=== PATIENT | female | born 1955 | race Caucasian/White ===

== ENCOUNTER 2019-03-03 06:24 | Day surgery (SDC) | payer MEDICARE, OTHER ==
--- NOTE | 2019-03-02 13:06 | PREOPHP ---
DATE OF ADMISSION: 03/03/2019 HISTORY OF PRESENT ILLNESS: This 63-year-old patient is admitted for elective cataract surgery of th e right eye. The patient has had decreased vision in both eyes for the past year's time. The patien t also has a history of "droopy" upper eyelids. The patient denies any prior history of eye disease or injury. PAST MEDICAL HISTORY: The patient's systemic history is positive for systemic hypertension and attention deficit disorder. CURRENT MEDICATIONS: Include: 1. Amlodipine. 2. Adderall. PAST SURGICAL HISTORY: The patient had a recent history of upper lid blepharoplasty in both eyes for the pseudoptosis. ALLERGIES: THERE ARE NO KNOWN ALLERGIES. PHYSICAL EXAMINATION: The visual acuity with best correction is 20/200 in the right eye and 20/70 in the left eye. Slit lamp examination reveals no residual ptosis of both upper eyelids. Slit lamp ex amination reveals moderate nuclear sclerosis and dense posterior subcapsular cataract in the right ey e with an early posterior subcapsular cataract in the left eye. Applanation tonometry is 15 mmHg. E xamination of the retina is within normal limits. DIAGNOSIS: Nuclear sclerotic and posterior subcapsular cataract, right eye. PLAN: Cataract extraction with lens implant, right eye. The risks and alternatives to the surgery h ave been discussed with the patient as well as the hope for improvement of visual acuity leading to g reater ability to perform activities of daily living. The patient understands this and agrees to pro ceed with surgery. Dictated By: SIMONE BASSETT/ARNIE Conf#: [id number] DID#: [id number]
[~2019-03-03] VITALS: Ht 168.9 cm; Wt 86.9 kg
[2019-03-03] VITALS (12 sets, daily range): BP systolic 129–151; BP diastolic 76–99; PULSE 63–74; RESP 16–33; Ht 168.9 cm; Wt 86.9 kg
[2019-03-03] MEDS ORDERED: TROPICAMIDE 1% 15 ML OPH OPER SCH (08:00)
[2019-03-03] MEDS ORDERED: CYCLOPENTOLATE/PHENYLEPH 2 ML OPH OPER SCH (08:00)
[2019-03-03] MEDS ORDERED: DICLOFENAC 0.1% 2.5 ML OPH OPER SCH (08:00)
[2019-03-03] MEDS ORDERED: MOXIFLOXACIN 0.5% 3 ML OPH OPER SCH (08:00)
[2019-03-03] MEDS ORDERED: SOD CHLORIDE 0.9% 1,000 ML IV SCH (08:00)
[2019-03-03] MEDS ORDERED: LIDOCAINE 4% (MPF) 5 ML INJ ONE (08:21)
[2019-03-03] MEDS ORDERED: CARBACHOL 0.01% 1.5 ML OPH INJ ONE (08:21)
[2019-03-03] MEDS ORDERED: DEXAMETHASONE 4 MG/ML 1 ML INJ ONE (08:21)
[2019-03-03] MEDS ORDERED: CEFAZOLIN 1 GM INJ ONE (08:21)
[2019-03-03] MEDS ORDERED: NA HYALURONATE/CHONDROITIN 0.5 ML SYG ONE (08:22)
--- NOTE | 2019-03-03 08:31 | PREAC ---
Date/Time of Note Date/Time of Note DATE: 03/03/19 TIME: 08:30 Anesthesia Eval and Record Evaluation Time Pre-Procedure Interview DATE: 03/03/19 TIME: 08:30 Age 63 Sex female NPO: 8 hrs Preoperative diagnosis Cataract R. Eye Planned procedure C/E, IOL Past Medical History Past Medical History: Includes Cardio: HTN Endo: Diabetes Renal: Other (Renal Cancer) Psych: Anxiety Surgery & Anesthesia Issues No known issue Meds Anticoagulation: No Beta Lena within 24 hr: No Reason Beta Lena not given: Pt. not on B-Lena No Active Prescriptions or Reported Meds Current Medications Diclofenac Sodium (Voltaren 0.1%) 1 drop Q5 MIN X 3 OPER Last administered on 03/03/19at 07:04; Admin Dose 1 DROP; Start 03/03/19 at 08:00; Stop 03/03/19 at 20:00 Tropicamide (Mydriacyl 1%) 1 drop Q5 MIN X3 OPER Last administered on 03/03/19at 07:04; Admin Dose 1 DROP; Start 03/03/19 at 08:00; Stop 03/03/19 at 20:00 Moxifloxacin HCl (Vigamox) 1 drop Q5 MIN X 3 OPER Last administered on at 07:04; Admin Dose 1 DROP; Start 03/03/19 at 08:00; Stop 03/03/19 at 20:00 Cyclopentolate/ Phenylephrine (Cyclomydril Oph 2 ml) 1 drop Q5 MIN X 3 OPER Last administered on 03/03/19at 07:04; Admin Dose 1 DROP; Start 03/03/19 at 08:00; Stop 03/03/19 at 20:00 Sodium Chloride 1,000 ml @ 25 mls/hr Q24H IV ; Start 03/03/19 at 08:00; Stop 03/03/19 at 20:00 Meds reviewed: Yes Allergies Coded Allergies: No Known Allergy (Unverified , 03/03/19) Allergies Reviewed: Yes Labs/Studies Labs Reviewed: Reviewed by anesthesiologist test: N/A Pre-procedure Exam Last vitals Vital Signs Date Temp Pulse Resp B/P (MAP) Pulse Ox O2 O2 Flow FiO2 Time Delivery Rate 03/03/19 97.0 63 16 129/99 97 Room Air 07:40 (109) Airway: Adequate mouth opening Mallampati: Mallampati II Teeth: Normal Lung: Normal Heart: Normal ASA Physical Status ASA physical status: 3 Emergency: None Planned Anesthetic General/MAC: MAC Pre-operative Attestations Prior to commencing anesthesia and surgery, the patient was re-evaluated, there was verification of: *The patient's identity *The results of appropriate recent lab work and preoperative vital signs *The above evaluation not changing prior to induction *Anesthetic plan, risk benefits, alternative and complications discussed with patient/family; questions answered; patient/family understands, accepts and wishes to proceed. ANDREY LEDEZMA MD March 03, 2019 08:31
[2019-03-03] MEDS ORDERED: PROPOFOL 20 ML ONE (08:34)
--- NOTE | 2019-03-03 09:14 | SIPON ---
Date/Time of Note Date/Time of Note DATE: 03/03/19 TIME: 09:13 Operative Report Preoperative Diagnosis nuclear sclerotic & posterior subcapsular cataract od Postoperative Diagnosis same Operation/Procedure Performed cataract extraction with lens implant od Surgeon simone elmore assistant counsel none Anesthesia: MAC Estimated blood loss: none Transfusion Required none Specimen none Grafts/Implants posterior chamber lens implant Complications none SIMONE ELMORE MD March 03, 2019 09:14
--- NOTE | 2019-03-03 09:17 | PAC ---
Date/Time of Note Date/Time of Note DATE: 03/03/19 TIME: 09:17 Post-Anesthesia Notes Post-Anesthesia Note Last documented vital signs Vital Signs Date Temp Pulse Resp B/P (MAP) Pulse Ox O2 O2 Flow FiO2 Time Delivery Rate 03/03/19 97.0 63 16 129/99 97 Room Air 07:40 (109) Activity: WNL Respiratory function: WNL Cardiovascular function: WNL Mental status: Baseline Pain reasonably controlled: Yes Hydration appropriate: Yes Nausea/Vomiting absent: Yes ANDREY LEDEZMA MD March 03, 2019 09:17
[2019-03-03] MEDS ORDERED: ACETAMINOPHEN 325 MG TAB PO ONE (09:30)
--- NOTE | 2019-03-03 09:43 | OPR ---
DATE OF OPERATION: 03/03/2019 PREOPERATIVE DIAGNOSIE: Nuclear sclerotic and posterior subcapsular cataract, right eye. POSTOPERATIVE DIAGNOSES: Nuclear sclerotic and posterior subcapsular cataract, right eye. OPERATION PERFORMED: Cataract extraction with lens implant, right eye. SURGEON: Simone Elmore M.D. ANESTHESIA: Joseph Ramos M.D. ANESTHESIA: Local standby. PROCEDURE: The patient was brought to the operating room and placed on the table with an IV in place and the patient attached to an court recording monitor. Oxygen was given via face mask. After some intravenous sedation was administered, local anesthesia was given using Xylocaine 2% with epinephrine, mixed with Marcaine 0.5%. This was given in a lid block and retrobulbar injection. The patient was then prepped and draped in the usual sterile manner. A wire lid speculum was inserted between the lids of the right eye. A Superblade was used to enter t he anterior chamber at the corneoscleral limbus at the 10:30 o'clock position. A separate incision w as made using a 3.0-mm keratome which entered the corneoscleral junction at the 12 o'clock position. Through this 3-mm opening, an irrigating cystotome was introduced into the anterior chamber. The ch radha was filled with Viscoat and an anterior capsulotomy was performed. Balanced salt solution was then used for hydrodissection of the lens. A phacoemulsification handpiece was then brought into the field and introduced into the anterior chamber. The lens nucleus was emulsified using a deep groove and cracking the nucleus into quadrants. Following this, each quadrant was aspirated and emulsified at the pupillary margin. After this was completed, the irrigation/aspiration handpiece was brought to the field, introduced in to the posterior chamber, and the lens cortical material was removed. When this was completed, addit ional Viscoat was injected into the anterior and posterior chambers. The 3-mm opening had its internal lips enlarged, and then the posterior chamber intraocular lens jean marie uring 18.0 diopters ([employer] Model LI61AO) was then injected into the posterior c hamber using the lens injector system. After the leading haptic was introduced into the capsular bag and the lens optic was present in the center of the eye, the injector was removed and the trailing h aptic was grasped with non-toothed forceps and introduced into the capsular fold superiorly. A [place] ey hook was then used to rotate the intraocular lens so that the lips were oriented in the horizontal meridian. One 10-0 nylon suture was placed across the wound. Prior to tying, the irrigation/aspiration handpiece was reintroduced into the anterior chamber to rem ove the Viscoat. Miochol was instilled to constrict the pupil, and then the 10-0 nylon suture was ti ed. The ends were cut short and then the knot was buried. Then, 0.5 mL of dexamethasone and 0.5 mL of Ancef were injected into the sub-Tenon space in the infer ior fornix. Ciloxan drops were then placed on the surface of the eye. The speculum was removed and a patch was applied. The patient then left the operating room in satisfactory condition. Dictated By: SIMONE BASSETT/ARNIE Conf#: [id number] DID#: [id number] CC: SIMONE ELMORE MD;*EndCC*
== END 2019-03-03 10:40 | disposition home or self-care (01) ==
LOC: SDS 06:24
PROVIDERS: ATTEND Ophthalmology
DX: H25.11 Age-related nuclear cataract, right eye (principal); E11.9 Type 2 diabetes mellitus without complications; I10 Essential (primary) hypertension
CPT/HCPCS: 66984; J0690; J1100; V2632

== ENCOUNTER 2019-03-24 07:49 | Day surgery (SDC) | payer MEDICARE, OTHER ==
--- NOTE | 2019-03-23 22:26 | PREOPHP ---
DATE OF ADMISSION: 03/24/2019 HISTORY OF PRESENT ILLNESS: This 63-year-old patient is admitted for elective cataract surgery of th e left eye. The patient has had progressive deterioration of vision in both eyes and has undergone c ataract surgery with lens implant in the right eye 3 weeks ago with good visual result. 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 SYSTEMIC HISTORY: Positive for hypertension and attention deficit disorder. CURRENT MEDICATIONS: Include: 1. Amlodipine. 2. Adderall. ALLERGIES: THERE ARE NO KNOWN ALLERGIES. PHYSICAL EXAMINATION: The visual acuity with best correction is 20/40 in the right eye and 20/70 in the left eye. Slit-lamp examination reveals a posterior chamber intraocular lens in the right eye an d a nuclear sclerotic and posterior subcapsular cataract in the left eye. Applanation tonometry is 1 6 mmHg. Examination of the retina is within normal limits. DIAGNOSIS: Nuclear sclerotic and posterior subcapsular cataract, left eye. PLAN: Cataract extraction with lens implant, left eye. The risks and the alternatives to the surger y have been discussed with the patient, including the hopes for improved visual acuity leading to gre ater ability to perform activities of daily living. The patient agrees to proceed with surgery. Dictated By: SIMONE BASSETT/ARNIE Conf#: [id number] DID#: [id number]
[2019-03-24] VITALS (9 sets, daily range): BP systolic 104–132; BP diastolic 65–76; PULSE 58–69; RESP 10–22; Ht 168.9 cm; Wt 86.4 kg
[~2019-03-24] VITALS: Ht 168.9 cm; Wt 86.4 kg
[2019-03-24] MEDS ORDERED: TROPICAMIDE 1% 15 ML OPH OPER SCH (08:00)
[2019-03-24] MEDS ORDERED: MOXIFLOXACIN 0.5% 3 ML OPH OPER SCH (08:00)
[2019-03-24] MEDS ORDERED: DICLOFENAC 0.1% 2.5 ML OPH OPER SCH (08:00)
[2019-03-24] MEDS ORDERED: SOD CHLORIDE 0.9% 1,000 ML IV SCH (08:00)
[2019-03-24] MEDS ORDERED: CYCLOPENTOLATE/PHENYLEPH 2 ML OPH OPER SCH (08:00)
[2019-03-24] MEDS ORDERED: ADDE30 PO (08:22)
[2019-03-24] MEDS ORDERED: AMLO-147 PO (08:22)
--- NOTE | 2019-03-24 09:36 | PREAC ---
Date/Time of Note Date/Time of Note DATE: 03/24/19 TIME: 09:34 Anesthesia Eval and Record Evaluation Time Pre-Procedure Interview DATE: 03/24/19 TIME: 09:34 Age 63 Sex female NPO: 8 hrs Preoperative diagnosis Left eye cataract Planned procedure Cataract extraction with IOL implant Past Medical History Past Medical History: Includes Cardio: HTN Renal: Other (N/O renal CA S/P nephrectomy) GI: Obesity Psych: Other (ADHD) Recreational drugs: Marijuana Surgery & Anesthesia Issues No known issue Meds Anticoagulation: No Beta Lena within 24 hr: No Reason Beta Lena not given: Pt. not on B-Lena Reported Medications Amlodipine Besylate* (Amlodipine Besylate*) 10 Mg Tablet, 10 MG PO DAILY, #30 TAB 03/24/19 Amphet Vza-Ijphgd-N-Amphet (Adderall) 30 Mg Tablet, 30 MG PO DAILY, TAB 03/24/19 Current Medications Diclofenac Sodium (Voltaren 0.1%) 1 drop Q5 MIN X 3 OPER Last administered on 03/24/19at 08:31; Admin Dose 1 DROP; Start 03/24/19 at 08:00 Tropicamide (Mydriacyl 1%) 1 drop Q5 MIN X3 OPER Last administered on 03/24/19at 08:32; Admin Dose 1 DROP; Start 03/24/19 at 08:00 Moxifloxacin HCl (Vigamox) 1 drop Q5 MIN X 3 OPER Last administered on 03/24/19 at 08:32; Admin Dose 1 DROP; Start 03/24/19 at 08:00 Cyclopentolate/ Phenylephrine (Cyclomydril Oph 2 ml) 1 drop Q5 MIN X 3 OPER Last administered on 03/24/19at 08:31; Admin Dose 1 DROP; Start 03/24/19 at 08:00 Sodium Chloride 1,000 ml @ 25 mls/hr Q24H IV Last administered on 03/24/19at 08:32; Admin Dose 25 MLS/HR; Start 03/24/19 at 08:00 Meds reviewed: Yes Allergies Coded Allergies: No Known Allergy (Unverified , 03/24/19) Allergies Reviewed: Yes Labs/Studies Labs Reviewed: Reviewed by anesthesiologist test: N/A Pre-procedure Exam Last vitals Vital Signs Date Temp Pulse Resp B/P (MAP) Pulse Ox O2 O2 Flow FiO2 Time Delivery Rate 03/24/19 97.6 60 16 120/72 96 Room Air 08:38 (88) Airway: Adequate mouth opening Mallampati: Mallampati II Teeth: Abnormal (Upper denture) Lung: Normal Heart: Normal ASA Physical Status ASA physical status: 3 Emergency: None Planned Anesthetic General/MAC: MAC Planned Pain Management Parenteral pain med Pre-operative Attestations Prior to commencing anesthesia and surgery, the patient was re-evaluated, there was verification of: *The patient's identity *The results of appropriate recent lab work and preoperative vital signs *The above evaluation not changing prior to induction *Anesthetic plan, risk benefits, alternative and complications discussed with patient/family; questions answered; patient/family understands, accepts and wishes to proceed. STUART WILSON MD Mar 24, 2019 09:36
[2019-03-24] MEDS ORDERED: PROPOFOL 20 ML ONE (10:18)
[2019-03-24] MEDS ORDERED: LABETALOL HCL 20MG INJ ONE (10:22)
[2019-03-24] MEDS ORDERED: DEXAMETHASONE 4 MG/ML 1 ML INJ ONE (10:36)
[2019-03-24] MEDS ORDERED: GENTAMICIN 80 MG INJ ONE (10:36)
[2019-03-24] MEDS ORDERED: CARBACHOL 0.01% 1.5 ML OPH INJ ONE (10:36)
[2019-03-24] MEDS ORDERED: LIDOCAINE 4% (MPF) 5 ML INJ ONE ×2 (10:36→11:06)
[2019-03-24] MEDS ORDERED: CEFAZOLIN 1 GM INJ ONE (10:36)
[2019-03-24] MEDS ORDERED: TETRACAINE 0.5% 4 ML OPH ONE (10:36)
[2019-03-24] MEDS ORDERED: EPINEPHrine 1 MG INJ ONE (10:37)
[2019-03-24] MEDS ORDERED: NA HYALURONATE/CHONDROITIN 0.5 ML SYG ONE (10:37)
[2019-03-24] MEDS ORDERED: MEPERIDINE 25 MG INJ IV PRN (11:00)
[2019-03-24] MEDS ORDERED: EPHEDrine 25 MG/5 ML SYG IV PRN (11:00)
[2019-03-24] MEDS ORDERED: DIPHENHYDRAMINE 50 MG INJ IV PRN (11:00)
[2019-03-24] MEDS ORDERED: METOCLOPRAMIDE 10 MG INJ IV PRN (11:00)
[2019-03-24] MEDS ORDERED: hydrALAzine 20 MG INJ IV PRN (11:00)
[2019-03-24] MEDS ORDERED: ONDANSETRON 4 MG INJ IV PRN (11:00)
[2019-03-24] MEDS ORDERED: FENTAnyl 50 MCG/ML VIAL IV PRN ×2 (11:00)
[2019-03-24] MEDS ORDERED: MIDAZOLAM 1 MG/ML 2 ML INJ IV PRN (11:00)
[2019-03-24] MEDS ORDERED: LABETALOL HCL 20MG INJ IV PRN (11:00)
[2019-03-24] MEDS ORDERED: OXYCODONE/ACETAMINOPHEN (5/325) TAB PO PRN ×2 (11:00)
[2019-03-24] MEDS ORDERED: MIDAZOLAM 1 MG/ML 2 ML INJ ONE (11:09)
[2019-03-24] MEDS ORDERED: FENTAnyl 50 MCG/ML VIAL ONE (11:09)
--- NOTE | 2019-03-24 11:47 | SIPON ---
Date/Time of Note Date/Time of Note DATE: 03/24/19 TIME: 11:45 Operative Report Preoperative Diagnosis nuclear sclerotic cataract os Postoperative Diagnosis same Operation/Procedure Performed cataract extraction with lens implant os Surgeon simone elmore lead assistant manager none Anesthesia: MAC Estimated blood loss: none Transfusion Required none Specimen none Grafts/Implants posterior chamber lens implant Complications none SIMONE ELMORE MD Mar 24, 2019 11:47
[2019-03-24] MEDS: FENTAnyl 50 MCG/ML VIAL IV PRN ×2 (11:49→12:02)
--- NOTE | 2019-03-24 12:23 | PAC ---
Date/Time of Note Date/Time of Note DATE: 03/24/19 TIME: 12:22 Post-Anesthesia Notes Post-Anesthesia Note Last documented vital signs Vital Signs Date Temp Pulse Resp B/P (MAP) Pulse Ox O2 O2 Flow FiO2 Time Delivery Rate 03/24/19 64 17 122/70 97 Room Air 12:14 (87) 03/24/19 98.0 11:43 Activity: WNL Respiratory function: WNL Cardiovascular function: WNL Mental status: Baseline Pain reasonably controlled: Yes Hydration appropriate: Yes Nausea/Vomiting absent: Yes Comments BT: 98.3 STUART WILSON MD Mar 24, 2019 12:23
--- NOTE | 2019-03-24 14:51 | OPR ---
DATE OF OPERATION: 03/24/2019 PREOPERATIVE DIAGNOSIS: Nuclear sclerotic and posterior subcapsular cataract, left eye. POSTOPERATIVE DIAGNOSIS: Nuclear sclerotic and posterior subcapsular cataract, left eye. OPERATION PERFORMED: Cataract extraction with lens implant, left eye. SURGEON: Simone Abad MD ANESTHESIOLOGIST: Dr. Mohan SURGEON: Simone Abad MD OPERATION: Phacoemulsification with posterior chamber intraocular lens implant, left eye. PROCEDURE: The patient was brought to the operating room and placed on the table with an IV in place and the patient attached to an compensation supervisor. Oxygen was given via face mask. After some intravenous sedation was administered, local anesthesia was given using Xylocaine 2% with epinephrine, mixed with Marcaine 0.5%. This was given in a lid block and retrobulbar injection. The patient was then prepped and draped in the usual sterile manner. A wire lid speculum was inserted between the lids of the left eye. A Superblade was used to enter the anterior chamber at the corneoscleral limbus at the 10:30 o'clock position. A separate incision was made using a 3.0-mm keratome which entered the corneoscleral junction at the 12 o'clock position. Through this 3-mm opening, an irrigating cystotome was introduced into the anterior chamber. The chamber was filled with Viscoat and an anterior capsulotomy was performed. Balanced salt solution was then used for hydrodissection of the lens. The lens nucleus was emulsified using a deep groove and cracking the nucleus into quadrants. Following this, each quadrant was aspirated and emulsified at the pupillary margin. Attempt was made to remove epinuclear layer of the cataract using the phacoemulsification handpiece. While doing this, a small central opening in the posterior capsule occurred. After this was completed, the irrigation/aspiration handpiece was brought to the field, introduced into the posterior chamber, and the lens cortical material was removed. It was noted that formed vitreous in the posterior chamber and at the lips of the wound. Attempt to remove the balance of the lens cortical material was stopped and an anterior vitrectomy was performed using mechanical vitrectomy instrumentation, until there was no formed vitreous at the ellipse of the wound or in the anterior chamber. Following that, the remainder of the lens cortical material was removed and then Provisc was injected into the anterior chamber and it was noted that there was sufficient posterior capsular support to place a posterior chamber lens implant. Therefore, a 17.0 diopter posterior chamber intraocular lens ([employer] Model LI61AO) was inserted into the posterior chamber anterior to the capsular supports. The lens remained well centered and did not move despite exterior pressure on the eye. After the leading haptic was introduced into the capsular bag and the lens optic was present in the center of the eye, the injector was removed and the trailing haptic was grasped with non-toothed forceps and introduced into the capsular fold superiorly. A [place] hook was then used to rotate the intraocular lens so that the lips were oriented in the horizontal meridian. One 10-0 nylon suture was placed across the wound. Prior to tying, the irrigation/aspiration handpiece was reintroduced into the anterior chamber to remove the Viscoat. Miochol was instilled to constrict the pupil, and then the 10-0 nylon suture was tied. The ends were cut short and then the knot was buried. Then, 0.5 mL of dexamethasone and 0.5 mL of Ancef were injected into the sub- Tenon space in the inferior fornix. Ciloxan drops were then placed on the surface of the eye. The speculum was removed and a patch was applied. The patient then left the operating room in satisfactory condition. Dictated By: SIMONE BASSETT/ARNIE Conf#: [id number] DID#: [id number] DANISHA
== END 2019-03-24 12:50 | disposition home or self-care (01) ==
LOC: SDS 07:49
PROVIDERS: ATTEND Ophthalmology
DX: H25.12 Age-related nuclear cataract, left eye (principal); I10 Essential (primary) hypertension
CPT/HCPCS: 66984; J0171; J0690; J1100; J1580; J2250; J3010; V2632